=== PATIENT | female | born 1960 | race Caucasian/White ===

== ENCOUNTER 2017-11-29 09:25 | Emergency (ER) | payer MEDICAID ==
[2017-11-29 09:59] VITALS: RESP 18; TEMP 97.7
--- NOTE | 2017-11-29 10:07 | C.PDOC ---
History Of Present Illness 57 year old patient presents to ED for evaluation of chest pain and sore throat that began this morning. Patient describes the pain as lower chest pain and upper abdomen pain. Patient notes pain is related to coughing and is nonreproducible. Denies productive cough, fever, chills, vomiting, nausea, and associated symptoms. Time Seen by Provider: 11/29/17 09:49 Chief Complaint (Nursing): Chest Pain History Per: Patient History/Exam Limitations: no limitations Onset/Duration Of Symptoms: Hrs Current Symptoms Are (Timing): Still Present Associated Symptoms: denies: Nausea Exacerbating Factors: Other (Cough) Alleviating Factors: None Recent travel outside of the [place]: No Past Medical History Reviewed: Historical Data, Nursing Documentation, Vital Signs Vital Signs: Last Vital Signs Temp 97.7 F 11/29/17 11:53 Pulse 61 11/29/17 11:53 Resp 18 11/29/17 11:53 BP 124/82 11/29/17 11:53 Pulse Ox 95 11/29/17 12:07 - Medical History PMH: Anxiety, Asthma Surgical History: Cholecystectomy Family History: States: Unknown Family Hx - Social History Hx Tobacco Use: Yes Hx Alcohol Use: Yes Hx Substance Use: No - Immunization History Hx Tetanus Toxoid Vaccination: No Hx Influenza Vaccination: No Hx Pneumococcal Vaccination: No Review Of Systems Except As Marked, All Systems Reviewed And Found Negative. Constitutional: Negative for: Fever, Chills ENT: Positive for: Throat Pain (sore throat) Cardiovascular: Positive for: Chest Pain (lower chest pain with cough) Respiratory: Positive for: Cough. Negative for: SOB with Excertion, Sputum Gastrointestinal: Positive for: Abdominal Pain (upper abdominal pain). Negative for: Nausea, Vomiting Physical Exam - Physical Exam Appears: Non-toxic Skin: Normal Color, Warm, Dry Head: Atraumatic, Normacephalic Eye(s): bilateral: Normal Inspection Oral Mucosa: Moist Throat: Normal, No Erythema, No Exudate Neck: Normal, Supple Chest: Symmetrical, No Tenderness Cardiovascular: Rhythm Regular Respiratory: Normal Breath Sounds, No Rales, No Rhonchi, No Wheezing Gastrointestinal/Abdominal: Soft, Tenderness (mild epigastric), No Guarding, No Rebound Back: No CVA Tenderness Extremity: Normal ROM (x4) Neurological/Psych: Oriented x3, Normal Speech Gait: Steady ED Course And Treatment - Laboratory Results Result Diagrams: 11/29/17 10:33 11/29/17 10:33 Lab Interpretation: Normal ECG: Interpreted By Me ECG Rhythm: Sinus Rhythm ECG Interpretation: No Acute Changes Rate From EC O2 Sat by Pulse Oximetry: 95 (RA) Pulse Ox Interpretation: Normal - Radiology CXR: Interpreted by Me CXR Interpretation: Yes: No Acute Disease Progress Note: Labs ordered. On re-evaluation patient requesting discharge and follow up with PMD Reassessment Condition: Improved Medical Decision Making Medical Decision Making: Impression: mild epigastric pain. 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 - Scribe Statement The provider has reviewed the documentation as recorded by the Scribe (Charity Workman) All medical record entries made by the Scribe were at my direction and personally dictated by me. I have reviewed the chart and agree that the record accurately reflects my personal performance of the history, physical exam, medical decision making, and the department course for this patient. I have also personally directed, reviewed, and agree with the discharge instructions and disposition.
--- NOTE | 2017-11-29 10:12 | RAD ---
HISTORY: SOB COMPARISON: Chest x-ray performed 08/22/14 TECHNIQUE: Chest PA and lateral FINDINGS: LUNGS: No focal consolidation. Please note that chest x-ray has limited sensitivity for the detection of pulmonary masses. PLEURA: No significant pleural effusion identified. No definite pneumothorax . CARDIOVASCULAR: Heart size appears within normal limits. Ectatic aorta. OSSEOUS STRUCTURES: Degenerative changes of the spine. VISUALIZED UPPER ABDOMEN: Unremarkable. OTHER FINDINGS: None. IMPRESSION: No focal consolidation, significant pleural effusion, or definite pneumothorax identified.
[2017-11-29 10:41] LABS: BASO % 0.4 % (0.0-2.0); EOS % 0.9 % (0.0-4.0); HEMOGLOBIN 14.7 g/dL (11.0-16.0); LYMPH # 1.9 K/uL (1.0-4.3); LYMPH % 40.2 % (20.0-40.0); MEAN CELL VOLUME 87.4 fL (81.0-99.0); MEAN CORPUSCULAR HEMOGLOBIN 28.4 pg (27.0-31.0); MEAN CORPUSCULAR HGB CONC 32.5 g/dL (33.0-37.0); MONO # 0.4 K/uL (0.0-0.8); MONO % 7.8 % (0.0-10.0); NEUT # 2.4 K/uL (1.8-7.0); NEUT % 50.7 % (50.0-75.0); NRBC % 0.1 % (0.0-2.0); RBC 5.19 Mil/uL (3.80-5.20); RED CELL DISTRIBUTION WIDTH 13.7 % (11.5-14.5); WHITE BLOOD COUNT 4.8 K/uL (4.8-10.8)
[2017-11-29 10:57] LABS: ALB/GLOB RATIO 1.3 (1.0-2.1); ALBUMIN 4.2 g/dL (3.5-5.0); BLOOD UREA NITROGEN 17 mg/dL (7-17); CALCIUM 9.5 mg/dl (8.6-10.4); GFR NON-AFRICAN AMERICAN > 60; LIPASE 309 U/L (23-300)
[2017-11-29 11:08] LABS: CK-MB 1.04 ng/mL (0.0-3.38)
[2017-11-29 11:12] LABS: ALT/SGPT 25 U/L (9-52); AST/SGOT 29 U/L (14-36)
[2017-11-29 11:12] LABS: SQUAMOUS EPITHIAL 3 /hpf (0-5); URINE BACTERIA RARE (<OCC); URINE BILIRUBIN NEGATIVE (NEGATIVE); URINE BLOOD NEGATIVE (NEGATIVE); URINE CLARITY Hazy (Clear); URINE COLOR Yellow (YELLOW); URINE GLUCOSE (UA) NORMAL (Normal); URINE LEUKOCYTE ESTERASE NEG Leu/uL (Negative); URINE PROTEIN NEGATIVE (NEGATIVE)
[2017-11-29 11:54] VITALS: BP 124/82; PULSE 61
[2017-11-29 12:07] VITALS: O2SAT 95
--- NOTE | 2017-12-03 08:22 | CARD ---
APPROVED REPORT Date of service: 11/29/2017 EKG Measurement Heart [id number] <Conclusion> Normal sinus rhythm Possible Left atrial enlargement Borderline ECG
== END 2017-11-29 12:13 | disposition home or self-care (01) ==
LOC: C.ER 09:25
DX: J06.9 Acute upper respiratory infection, unspecified (principal)

== ENCOUNTER 2017-12-25 17:32 | Emergency (ER) | payer MEDICAID ==
[2017-12-25 17:54] VITALS: BP 122/88; PULSE 77; RESP 16; TEMP 98.6; O2SAT 98
[2017-12-25] MEDS ORDERED: Albuterol-Ipratrop 3 mg / 0.5 (3 ml) UD IH STA (18:47)
[2017-12-25] MEDS ORDERED: Albuterol-Ipratrop 3 mg / 0.5 (3 ml) UD ONE (19:09)
[2017-12-25 19:29] LABS: SQUAMOUS EPITHIAL 11 /hpf (0-5); URINE BILIRUBIN NEGATIVE (NEGATIVE); URINE BLOOD NEGATIVE (NEGATIVE); URINE CLARITY Hazy (Clear); URINE COLOR Yellow (YELLOW); URINE GLUCOSE (UA) NORMAL (Normal); URINE HYALINE CAST >20 /lpf (0-2); URINE LEUKOCYTE ESTERASE NEG Leu/uL (Negative); URINE PROTEIN NEGATIVE (NEGATIVE)
--- NOTE | 2017-12-25 19:57 | C.PDOC ---
History Of Present Illness 57 year old female with a Hx of asthma and HTN presents to the ER with a complaint of sore throat, cough, and congestion for the past 2 days associated with right ear pain. Denies fever or chills. Patient also reports having some lower abdominal pain and urinary frequency. Notes she has had this pain in the past intermittently. Denies dysuria, hematuria, vaginal discharge, chest pain, sob, nausea or vomiting. Time Seen by Provider: 12/25/17 18:20 Chief Complaint (Nursing): ENT Problem History Per: Patient History/Exam Limitations: no limitations Onset/Duration Of Symptoms: Days Current Symptoms Are (Timing): Still Present Location Of Pain: Throat Sick Contacts (Context): None Associated Symptoms: Sore Throat, Cough, Other (Chest congestion, Frequency, Suprapubic pain). denies: Fever, Chills, Nausea, Vomiting Ear Symptoms: Right: Ear Pain Recent travel outside of the [place]: No Past Medical History Reviewed: Historical Data, Nursing Documentation, Vital Signs Vital Signs: Last Vital Signs Temp 98.6 F 12/25/17 17:53 Pulse 77 12/25/17 17:53 Resp 16 12/25/17 17:53 BP 122/88 12/25/17 17:53 Pulse Ox 98 12/25/17 17:53 - Medical History PMH: Anxiety, Asthma, HTN Surgical History: Back Surgery, Cholecystectomy Family History: States: Unknown Family Hx - Social History Hx Tobacco Use: Yes Hx Alcohol Use: Yes Hx Substance Use: No - Immunization History Hx Tetanus Toxoid Vaccination: No Hx Influenza Vaccination: No Hx Pneumococcal Vaccination: No Review Of Systems Constitutional: Negative for: Fever, Chills ENT: Positive for: Ear Pain, Throat Pain Respiratory: Positive for: Cough Gastrointestinal: Positive for: Abdominal Pain. Negative for: Nausea, Vomiting Genitourinary: Positive for: Frequency Physical Exam - Physical Exam Appears: Non-toxic, No Acute Distress Skin: Normal Color, Warm, Dry Head: Atraumatic, Normacephalic Eye(s): bilateral: Normal Inspection, EOMI Ear(s): Left: Normal, Right: Other (Mild exudates and erythema) Nose: Normal Oral Mucosa: Moist Throat: Normal, No Erythema, No Exudate Neck: Normal, No Midline Cervical Tenderness, No Paracervical Tenderness, Supple Chest: Symmetrical, No Tenderness Cardiovascular: Rhythm Regular, Other (persistent dry cough) Respiratory: No Rhonchi, Wheezing (scattered wheezing) Gastrointestinal/Abdominal: Soft, No Tenderness Back: No CVA Tenderness Extremity: Normal ROM Neurological/Psych: Oriented x3, Normal Speech Gait: Steady ED Course And Treatment O2 Sat by Pulse Oximetry: 98 (Room air) Pulse Ox Interpretation: Normal - Radiology CXR: Interpreted by Me, Viewed By Me CXR Interpretation: Yes: No Acute Disease. No: Infiltrates Progress Note: CXR and urinalysis ordered, results were negative. Albuterol and prednisone administered. On reevaluation, patient states she feels much better. PT is resting comfortably in the ER in no acute respiratory distress with clear breath sounds, vitals are stable. Pt was offered further imaging and labs for abdominal pain but she declined. Pt instructed to follow up with PMD in 1-2 days. Return precautions given. Disposition - Disposition Disposition: HOME/ ROUTINE Disposition Time: 19:59 Condition: STABLE Additional Instructions: Follow up with your primary medical doctor or clinic in 2-5 days for further evaluation. Take medications as prescribed. Return to the emergency department at any time if symptoms persist or worsen. 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 - Scribe Statement The provider has reviewed the documentation as recorded by the Scribcherelle Cuello All medical record entries made by the Scribe were at my direction and personally dictated by me. I have reviewed the chart and agree that the record accurately reflects my personal performance of the history, physical exam, medical decision making, and the department course for this patient. I have also personally directed, reviewed, and agree with the discharge instructions and disposition.
--- NOTE | 2017-12-26 10:24 | RAD ---
HISTORY: uri COMPARISON: Chest x-ray performed 11/29/17 TECHNIQUE: Chest PA and lateral FINDINGS: LUNGS: No focal consolidation. 9 mm nodular density at the right lower chest, appears consistent with nipple shadow. Probable right lower lobe calcified granuloma. Please note that chest x-ray has limited sensitivity for the detection of pulmonary masses. PLEURA: No significant pleural effusion identified. No definite pneumothorax . CARDIOVASCULAR: Heart size appears within normal limits. Atherosclerotic calcification of the aortic knob. OSSEOUS STRUCTURES: Degenerative changes of the spine. VISUALIZED UPPER ABDOMEN: Unremarkable. OTHER FINDINGS: None. IMPRESSION: 9 mm nodular density at the right lower chest, appears consistent with nipple shadow. Probable right lower lobe calcified granuloma.
== END 2017-12-25 20:10 | disposition home or self-care (01) ==
LOC: C.ER 17:32
DX: J40 Bronchitis, not specified as acute or chronic (principal); R10.9 Unspecified abdominal pain; F17.210 Nicotine dependence, cigarettes, uncomplicated